=== PATIENT | male | born 1945 | race Hispanic/Latino ===

== ENCOUNTER → 2018-02-18 | Day surgery (SDC) | payer OTHER ==
[2018-02-17 09:14] LABS: BASOPHILS % 0.5 % (0.0-1.0); EOSINOPHILS # (AUTO) 0.2 (0.0-0.4); EOSINOPHILS % 2.6 % (0.0-6.0); HEMATOCRIT 39.6 % (38.2-49.6); HEMOGLOBIN 12.5 g/dL (14.0-18.0); LYMPHOCYTES # (AUTO) 1.8 (1.0-3.2); LYMPHOCYTES % 23.9 % (18.0-39.1); MEAN CORPUSCULAR HEMOGLOBIN 30.9 pg (28-32); MEAN CORPUSCULAR HGB CONC 31.6 g/dL (31-35); MEAN CORPUSCULAR VOLUME 97.8 fL (81-99); MONOCYTES # (AUTO) 0.6 (0.2-0.8); MONOCYTES % 7.7 % (4.4-11.3); NEUTROPHILS # (AUTO) 4.9 (2.1-6.9); NEUTROPHILS % 64.6 % (38.7-80.0); PLATELET COUNT 211 x10e3/uL (140-360); RED BLOOD COUNT 4.05 x10e6/uL (4.3-5.7); RED CELL DISTRIBUTION WIDTH 12.9 % (11.7-14.4)
[2018-02-17 09:32] LABS: ANION GAP 12.2 mmol/L (8-16); CALCIUM 9.1 mg/dL (8.4-10.2); CREATININE, SERUM 2.66 mg/dL (0.72-1.25); POTASSIUM 5.2 mmol/L (3.5-5.1)
--- NOTE | 2018-02-17 09:55 | Diagnostic Imaging Report ---
PROCEDURE: X-RAY CHEST, TWO VIEWS COMPARISON: None. INDICATIONS: PREOPERATIVE CHEST XRAY FOR FOREHEAD MASS REMOVAL FINDINGS: Lungs are well-inflated. No focal airspace consolidation, pleural effusion, or pneumothorax. Tortuosity of the thoracic aorta with an otherwise normal cardiomediastinal contour. No acute osseous abnormality. Thoracic spine and surgical hardware. CONCLUSION: No acute cardiopulmonary abnormality. Dictated by: Wilman Wilson M.D. on 02/17/2018 at 9:58 Electronically approved by: Wilman Wilson M.D. on 02/17/2018 at 9:58
[~2018-02-18] MED LIST: ASPIRIN81 MG; ATORVASTATIN CA20 MG PO; BUPIVACAINE 0.5%/EPI 30 ML SDV INJ ONE; CARVEDILOL12.5 MG PO; CYMBALTA30 MG; FENTANYL CITRATE/PF 100MCG/2 ML INJ ONE; GLIMEPIRIDE2 MG PO; INSULIN; LEVEMIR100 UNIT/1; LIDOCAINE 1% W/EPINEPHRINE 20 ML VIAL ONE; LIDOCAINE HCL 2% LOCAL INJ 5 ML SDV VIAL INJ ONE; LYRICA75 MG; MIDAZOLAM HCL 2 MG/2 ML VIAL ONE; NEOSTIGMINE 1 MG/ML 10ML VIAL ONE; ONDANSETRON HCL INJ 2 MG/ML VIAL ONE; PIOGLITAZONE HC45 MG PO; PROPOFOL IV EMULSION 10 MG/ML 20 ML VIAL ONE; SODIUM CHLORIDE 0.9% 500ML 500 ML ONE
--- NOTE | 2018-02-18 13:08 | Operative Report ---
DATE OF PROCEDURE: February 18, 2018 PREOPERATIVE DIAGNOSIS: Large mass of the frontal scalp. POSTOPERATIVE DIAGNOSIS: Large mass of the frontal scalp. OPERATION PERFORMED: Resection of large mass of the frontal scalp. ANESTHESIA: Local 1% Xylocaine with epinephrine and MAC. COMPLICATIONS: None. ESTIMATED BLOOD LOSS: Minimal. DESCRIPTION OF PROCEDURE: With the patient lying in bed in the supine position, under good IV sedation, the forehead and frontal scalp were prepped with Hibiclens solution and draped in the usual manner. The area surrounding the mass was then infiltrated with 1% Xylocaine with epinephrine solution. An elliptical incision was made to include some of the skin overlying the mass. Immediately, a mass was encountered just underneath the skin. This was a highly vascular lesion, which was slowly and carefully from the skin, and it extended all the way down to the muscular layer. This was totally and completely resected and sent for pathological examination. Hemostasis was then ascertained. The subcutaneous tissue was then closed with interrupted sutures of 4-0 Vicryl, and the skin was closed with interrupted sutures of 6-0 nylon. A dressing was applied. The sponge, lap and needle count was correct. Patient tolerated the procedure well and returned to the recovery room in stable condition. Job#: [id number]
== END | disposition home or self-care (01) ==
LOC: OR 08:03
PROVIDERS: ATTEND Surgery
DX: I82.890 Acute embolism and thrombosis of other specified veins (principal); I99.8 Other disorder of circulatory system; E11.9 Type 2 diabetes mellitus without complications; I10 Essential (primary) hypertension; I49.1 Atrial premature depolarization; Z01.810 Encounter for preprocedural cardiovascular examination; Z01.812 Encounter for preprocedural laboratory examination; Z01.818 Encounter for other preprocedural examination; Z79.82 Long term (current) use of aspirin; Z79.4 Long term (current) use of insulin; Z87.891 Personal history of nicotine dependence
CPT/HCPCS: 21014; 36415 ×2; 71046; 80048; 82948; 85025; 88305; 93005; J2001; J2250; J2405; J2710; J7040; 88304